=== PATIENT | female | born 1950 | race Caucasian/White ===

== ENCOUNTER → 2025-09-20 15:56 | Outpatient (REF) | payer MEDICARE, OTHER, SELFPAY | LOC: RAD 15:56 | PROVIDERS: FAMILY PHYSICIAN Family Medicine; REFERRING PHYSICIAN Surgery Vascular Surgery | DX: I74.4 Embolism and thrombosis of arteries of extremities, unspecified (principal) | CPT/HCPCS: 73206; Q9967 ==